=== PATIENT | female | born 1995 | race Two or more races ===

== ENCOUNTER 2020-06-17 13:58 | Emergency (ER) | payer SELFPAY ==
--- NOTE | 2020-06-17 14:08 | PDOC ---
History of Present Illness - General Stated Complaint: COLD SYS Time Seen by Provider: 06/17/20 14:03 History Source: Patient Exam Limitations: No Limitations - History of Present Illness Initial Comments: 06/17/20 14:03 24 year old female no pmhx 4 weeks presenting to the ED complaining of fever and loss of taste. Pt states she had a fever of 101 which has now subsided and has had loss of taste for 2 days. Pt works at [employer] and was sent home. Pt otherwise denies: fevers, chills, syncope, lightheadedness, dizziness, headaches, neck pain, chest pain, shortness of breath, palpitations, back pain, abdominal pain, nausea, vomiting, diarrhea, constipation. 06/17/20 14:09 Past History - Medical History Allergies/Adverse Reactions: Allergies Allergy/AdvReac Type Severity Reaction Status Date / Time No Known Allergies Allergy Verified 06/17/20 14:07 *Physical Exam - Physical Exam 06/17/20 14:09 Gen: AAOx 3, no acute distress, comfortable, no signs of respiratory distress HENT: atraumatic, normocephalic with no laceration or contusion. Nasal mucosa without erythema. Oropharynx without erythema or exudates. Mucous membranes moist. EYES: PERRL, EOM intact, conjunctiva pink NECK: supple; trachea midline; no JVD, no lymphadenopathy, or thyromegaly CV: RRR no murmurs, gallops, or rubs. CHEST: CTA b/l no wheezing, rales or rhonchi ABD: +BS/ND. no TTP; soft, no rebound, no guarding EXTREMITY: no cyanosis or erythema. 2+ dorsalis pedis, posterior tibial, and radial pulse. No pedal edema; no calf swelling or tenderness SKIN: no rash, warm and dry, no diaphoresis HEME: no purpura or ecchymosis NEURO: normal speech, CN II-XII intact, sensation intact, normal gait, no cerebellar deficits MS: 5/5 strength in all extremities, FROM intact in all extremities. Medical Decision Making - Medical Decision Making 06/17/20 14:09 24 year old female 4 weeks with flu like symptoms, likely COVID VSS O2 sat 98% slightly tachycardic (states she has not been staying hydrated) will repeat Will provide COVID testing and discharge with close PCP and medical receptionist biller follow up Tachycardia resolved Supportive care instructions explained to pt as well as signs and symptoms requiring immediate return Pt appears well and is safe and stable for discharge Pt instructed to stay home and self isolate until results are back. Supportive care instructions explained and given to pt. Reasons to return jazmin gently to ER explained and given. Importance of follow up with PMD and other specialists as indicated stressed to pt. Pt verbalized understanding of instructions. Pt to follow up with PMD in 2 days. Discharge - Discharge Information Problems reviewed: Yes Clinical Impression/Diagnosis: Counseled about COVID-19 virus infection Condition: Stable Disposition: HOME - Follow up/Referral - Patient Discharge Instructions Patient Printed Discharge Instructions: [facility]Coronavirus Instructions, [facility]- [facility] COVID-19 Isolation Protocol Additional Instructions: You must follow up with your PCP as well as self isolate until results are given via phone - Post Discharge Activity
[2020-06-17 14:10] VITALS: BP 120/84; PULSE 100; TEMP 98.7; BMI 25.4
== END 2020-06-17 14:30 | disposition home or self-care (01) ==
LOC: JER 13:58
DX: Z03.818 Encounter for observation for suspected exposure to other biological agents ruled out (principal)
CPT/HCPCS: 99283-25; U0003

== ENCOUNTER 2020-08-15 19:47 | Emergency (ER) | payer OTHER ==
[2020-08-15 20:06] VITALS: BP 133/84; PULSE 102; TEMP 98; BMI 26.6
--- OUTSIDE RECORDS SUMMARY | 2020-08-15 20:21 | XMS ---
:1995 Author Organization [facility] Support Name Relationship Address Phone SALINAS Melo [address] [place] [address] AKOSUA GRULLON FRIEND [address] [place] [address] Re-disclosure Warning The records that you are about to access may contain information from federally- assisted alcohol or drug abuse programs. If such information is present, then the following federally mandated warning applies: This information has been disclosed to you from records protected by federal confidentiality rules (42 CFR part 2). The federal rules prohibit you from making any further disclosure of this information unless further disclosure is expressly permitted by the written consent of the person to whom it pertains or as otherwise permitted by 42 CFR part 2. A general authorization for the release of medical or other information is NOT sufficient for this purpose. The Federal rules restrict any use of the information to criminally investigate or prosecute any alcohol or drug abuse patient.The records that you are about to access may contain highly sensitive health information, the redisclosure of which is protected by Article 27-F of the [facility] Public Health law. If you continue you may haveaccess to information: Regarding HIV / AIDS; Provided by facilities licensed or operated by the [facility] Office of Mental Health; or Provided by the [facility] Office for People With Developmental Disabilities. If such information is present, then the following [facility] mandated warning applies: This information has been disclosed to you from confidential records which are protected by state law. State law prohibits you from making any further disclosure of this information without the specific written consent of the person to whom it pertains, or as otherwise permitted by law. Any unauthorized further disclosure in violation of state law may result in a fine or halfway sentence or both. A general authorization for the release of medical or other information is NOT sufficient authorization for further disclosure. Insurance Providers Payer name Policy type Policy ID Covered Covered democrat's Policy P grant / Coverage democrat ID relationship to [employer] ormation type miles SELF PAY SP INSURANCE Results ID Date Data Source [id number] 06/17/2020 02:40:00 PM EDT [facility] Name Value Range Interpretation Description Data Sup porting Code Source(s) Document(s ) SARS [facility] coronavirus 2 RNA This lab was ordered by [facility] and reported by [facility]. Procedure
[2020-08-15] MEDS ORDERED: ACETAMINOPHEN 325 MG TABLET (FP) PO ONE (20:44)
[2020-08-15] MEDS ORDERED: METOCLOPRAMIDE HCL INJECTION 10 MG/2 ML VIAL IM ONE (20:54)
--- NOTE | 2020-08-15 21:01 | PDOC ---
History of Present Illness - General Chief Complaint: Pain Stated Complaint: 13 WKS /ABD/BACK/HEADACHE/PAINS Time Seen by Provider: 08/15/20 20:50 Past History - Medical History Allergies/Adverse Reactions: Allergies Allergy/AdvReac Type Severity Reaction Status Date / Time No Known Allergies Allergy Verified 08/15/20 20:05 Home Medications: Ambulatory Orders Cephalexin [Keflex] 500 mg PO TID #20 capsule 08/15/20 COPD: No - Reproductive History Is Patient Now?: Yes - Psycho-Social/Smoking History Smoking History: Never smoked - Substance Abuse Hx (Audit-C & DAST Scrn) How often the patient has a drink containing alcohol: Never Score: In Men: 4 or > Positive; In Women: 3 or > Positive: 0 Screen Result (Pos requires Nsg. Audit-10AR): Negative In the last yr the pt used illegal drug/Rx for NonMed reason: No Score: Yes response is considered Positive: 0 Screen Result (Positive result requires Nsg. DAST-10): Negative *Physical Exam - Vital Signs Last Vital Signs Temp Pulse Resp BP Pulse Ox 98.0 F 102 H 18 133/84 99 08/15/20 20:03 08/15/20 20:03 08/15/20 20:03 08/15/20 20:03 08/15/20 20:03 Medical Decision Making - Medical Decision Making 08/15/20 21:01 HPI: 24 year old F no pmhx approx 13w6d by LMP (but pt very uncertain of LMP) presents from home c/o intermittent pains x3-4 weeks. Pains in entire back musculature and L upper abdomen, not associated/at same time, cramping, worse with movement, almost daily, never last all day, resolve with tylenol but only used a few times. Also c/o bilateral temporal pressure type headache without associated N/V or neurologic complaints, resolve with tylenol. Pt told trolley operator about these complaints and was instructed to use tylenol. Last tylenol use >1 week ago. confirmed by trolley operator blood test but no US done yet, next appt week of August. First normal no complications. Pt taking vitamins. Denies vaginal or urinary sx, covid, lower abdominal pain, neuro complaints, N/V, D/C, F/C. ROS: Constitutional: Negative for chills, fever, fatigue, diaphoresis. HENT: Negative for sore throat, rhinorrhea, congestion. Eyes: Negative for visual disturbance. Respiratory: Negative for shortness of breath, cough, and wheezing. Cardiovascular: Negative for chest pain, palpitations, and leg swelling. Gastrointestinal: Positive for abdominal pain. Negative for blood in stool, constipation, diarrhea, nausea, and vomiting. Genitourinary: Negative for dysuria, flank pain, and hematuria. Musculoskeletal: Positive for back pain. Negative for myalgias, and neck pain. Skin: Negative for rash. Neurological: Positive for headache. Negative for light-headedness, dizziness, vertigo, syncope, weakness, numbness. Psychiatric/Behavioral: Negative for behavioral problems and confusion. PE: Gen: Alert, NAD, comfortable-appearing. HEENT: PERRL, EOMI, MMM, NCAT. No conjunctival pallor. Sclera are non-icteric. CV: Regular rate and rhythm. No murmurs, rubs, or gallops. PULM: No resp distress. CTAB, no wheezes, rales, or rhonchi. ABD: soft, gravid abdomen, NT, no rebound tenderness or guarding, no CVA tenderness. BACK: Ttp diffuse musculature of back. No TTP of midline c/t/l-spine. No step- offs or deformities. MSK: No bony deformities. 2+ pulses in all extremities. NEURO: AAOx3. PERRL. CN 2-12 intact. 5/5 strength in all extremities. Sensation to light touch intact in all extremities. No abnormal nystagmus. Normal gait. EXTREMITIES: No cyanosis. No clubbing. No edema. No calf tenderness. PSYCH: Normal mood and thought pattern. SKIN: Warm and dry. Normal capillary refill. No rashes. No jaundice. MDM: 24 year old F no pmhx approx 13w6d by LMP (but pt very uncertain of LMP) presents from home c/o intermittent back, head, and abdominal pains x3-4 weeks. Hemodynamically stable, afebrile, benign gravid abdomen, neurologically intact. Ddx: pains, MSK, ectopic , UTI, threatened . No vaginal bleeding, water breaking, change in abdominal pain, neuro deficit, D/C/N/V/F/C, or other s/s concerning for emergent GI pathology, ovarian torsion or other emergent pelvic pathology, metabolic derangement, anemia, or infection. -UA/UC/Upreg -TVUS -Pain management -Dispo: pending workup and reassessment, likely d/c home 08/15/20 21:58 TVUS reviewed: IUP, 13w4d, 152 FHR 08/15/20 23:17 UA + for UTI -Keflex Will discharge home with trolley operator f/u. Return precautions given. Pt understands all discharge instructions and all questions were answered. Discharge - Discharge Information Problems reviewed: Yes Clinical Impression/Diagnosis: UTI (urinary tract infection) Qualifiers: Weeks of gestation: 13 weeks Qualified Code(s): Z3A.13 - 13 weeks gestation of Back pain affecting Qualifiers: Trimester: second trimester Qualified Code(s): O99.89 - Other specified diseases and conditions complicating , childbirth and the puerperium Headache Qualifiers: Headache type: unspecified Condition: Improved Disposition: HOME - Admission No - Additional Discharge Information Prescriptions: Cephalexin [Keflex] 500 mg PO TID #20 capsule - Follow up/Referral - Patient Discharge Instructions Patient Printed Discharge Instructions: Common Discomforts and Bodily Changes During Additional Instructions: You have been seen for your headache, stomach pain, and back pain during . Your exam, tests, and ultrasounds show no signs concerning for an emergent condition at this time. Your ultrasound confirms your baby at approximately 13 weeks 4 days with a good heart rate. Follow-up with your Wound Care Specialist as scheduled. Continue to take your vitamins. Your urine has an infection - take our antibiotics as prescribed; we have sent them to your pharmacy. If you experience pain, you can take Tylenol as directed on the medication bottle, but do not exceed 4g of Tylenol a day. Return to the Emergency Department immediately if you experience chest pain, difficulty breathing, vaginal bleeding, or any other new or worsening symptom. - Post Discharge Activity
[2020-08-15] MEDS ORDERED: LIDOCAINE 5% TOPICAL PATCH TP ONE (21:20)
[2020-08-15] MEDS ORDERED: METOCLOPRAMIDE HCL 10 MG TABLET (FP) PO ONE ×2 (21:22→21:26)
[2020-08-15] MEDS ORDERED: ACETAMINOPHEN 325 MG TABLET (FP) ONE (21:26)
[2020-08-15] MEDS ORDERED: LIDOCAINE 5% TOPICAL PATCH ONE (21:41)
[2020-08-15] MEDS ORDERED: LIDOCAINE PATCH REMOVAL MC SCH (22:00)
[2020-08-15 22:12] LABS: HCG,QUALITATIVE URINE Positive
[2020-08-15 22:45] LABS: URINE APPEARANCE TURBID; URINE COLOR YELLOW; URINE GLUCOSE (UA) NEGATIVE (NEGATIVE)
[2020-08-15 22:47] LABS: URINE BILIRUBIN NEGATIVE (NEGATIVE); URINE KETONE 1+ (NEGATIVE); URINE PROTEIN TRACE (NEGATIVE)
[2020-08-15 22:48] LABS: EPI CELLS 38.8 /uL (0-25.1); HYALINE CASTS 394.19 /uL (0-3.1); URINE BACTERIA 29929.9 /uL (0-1359); URINE LEUK ESTERASE TRACE (NEGATIVE); URINE NITRITE POSITIVE (NEGATIVE); URINE RBC 7.9 /uL (0-23.9); URINE WBC 666.9 /uL (0-25.8)
[2020-08-15] MEDS ORDERED: CEPHALEXIN 250 MG/5 ML ORAL SUSPENSION PO ONE (23:00)
--- NOTE | 2020-08-15 23:04 | PDOC ---
Documentation entered by Omer Camargo SCRIBE, acting as scribe for Augusta Gutierrez MD. Augusta Gutierrez MD: This documentation has been prepared by the Raman sabillon Angel, SCRIBE, under my direction and personally reviewed by me in its entirety. I confirm that the documentation accurately reflects all work, treatment, procedures, and medical decision making performed by me. Attending Attestation - Resident Resident Name: Tanai Braun - ED Attending Attestation I have performed the following: I have examined & evaluated the patient, The case was reviewed & discussed with the resident, I agree w/resident's findings & plan - HPI HPI: 08/15/20 22:16 The patient is a 24 year old approximately 13w6d female () with no significant past medical history who presents to the ED with left flank/left sided abdominal pain and back pain. The patient describes her back and flank pain as an intermittent sharp pain, worse on exertion. The patient also comes in complaining of headaches with no associated nausea or vomiting. The patient contacted her OBGYN and was told to take tylenol. The patient states she does feel better here in the ED after receiving tylenol. The patient denies fever/chills, nausea, vomiting, diarrhea, or SOB. - Physicial Exam PE: 08/16/20 07:34 Agree with resident exam - Medical Decision Making 08/15/20 21:56 Pt's sono shows a 13.5 week fetus with good FHT Pt will have UA and we will have her follow with her COMPANY LABORER; tylenol and reglan given for her KIMBALL and lidoderm for her back pain Discharge - Discharge Information Problems reviewed: Yes Clinical Impression/Diagnosis: UTI (urinary tract infection) Qualifiers: Weeks of gestation: 13 weeks Qualified Code(s): Z3A.13 - 13 weeks gestation of Back pain affecting Qualifiers: Trimester: second trimester Qualified Code(s): O99.89 - Other specified diseases and conditions complicating , childbirth and the puerperium; M54.9 - Dorsalgia, unspecified Headache Qualifiers: Headache type: unspecified Condition: Improved Disposition: HOME - Additional Discharge Information Prescriptions: Cephalexin [Keflex] 500 mg PO TID #20 capsule - Follow up/Referral - Patient Discharge Instructions Patient Printed Discharge Instructions: Common Discomforts and Bodily Changes During Additional Instructions: You have been seen for your headache, stomach pain, and back pain during . Your exam, tests, and ultrasounds show no signs concerning for an emergent condition at this time. Your ultrasound confirms your baby at approximately 13 weeks 4 days with a good heart rate. Follow-up with your Opener Tender as scheduled. Continue to take your vitamins. Your urine has an infection - take our antibiotics as prescribed; we have sent them to your pharmacy. If you experience pain, you can take Tylenol as directed on the medication bottle, but do not exceed 4g of Tylenol a day. Return to the Emergency Department immediately if you experience chest pain, difficulty breathing, vaginal bleeding, or any other new or worsening symptom. - Post Discharge Activity
[2020-08-15 23:36] LABS: YEAST NEGATIVE (NEGATIVE)
[2020-08-15] MEDS ORDERED: CEPHALEXIN MONOHYDRATE 500 MG CAPSULE (UD) PO ONE (23:36)
[2020-08-15] MEDS ORDERED: CEPHALEXIN MONOHYDRATE 500 MG CAPSULE (UD) ONE (23:37)
--- NOTE | 2020-08-16 14:03 | EKG ---
Test Reason : Blood Pressure : / mmHG Vent. Rate : 085 BPM Atrial Rate : 085 BPM P-R Int : 140 ms QRS Dur : 076 ms QT Int : 380 ms P-R-T Axes : 048 031 038 degrees QTc Int : 452 ms NORMAL SINUS RHYTHM POSSIBLE LEFT ATRIAL ENLARGEMENT LOW VOLTAGE QRS BORDERLINE ECG NO PREVIOUS ECGS AVAILABLE Confirmed by JAYNE HUANG, TAMRA ([id number]) on 08/16/2020 2:02:56 PM Referred By: Confirmed By:TAMRA GODOY MD
== END 2020-08-15 23:47 | disposition home or self-care (01) ==
LOC: JER 19:47
DX: O99.89 Other specified diseases and conditions complicating pregnancy, childbirth and the puerperium (principal); N39.0 Urinary tract infection, site not specified; Z3A.13 13 weeks gestation of pregnancy
CPT/HCPCS: 76801-TC; 81003; 84703; 87077; 87086; 93005; 93010; 99285-25